=== PATIENT | female | born 1960 | race Two or more races ===

== ENCOUNTER 2019-11-18 06:11 | Day surgery (SDC) | payer OTHER ==
[2019-11-18] VITALS (11 sets, daily range): BP systolic 116–138; BP diastolic 71–87
[~2019-11-18] VITALS: Ht 162.6 cm; Wt 81.6 kg
--- NOTE | 2019-11-18 06:55 | Short Stay Surgery H&P ---
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 Summary of Findings see the reports Attestation Are the patient's medical conditions optimized for surgery? Attestation Response: yes Hernando Appiah MD Nov 18, 2019 06:55
--- NOTE | 2019-11-18 06:56 | Pre-Procedure Note/Attestation ---
Pre-Procedure Note/Attestation Complete Prior to Procedure Planned Procedure: left Procedure Narrative: Examination of the upper and the lower GI tract via endoscopy Indications for Procedure Pre-Operative Diagnosis: Gastritis/Esophagitis/colitis?IBS Attestation I attest that I discussed the nature of the procedure; its benefits; risks and complications; and alternatives (and the risks and benefits of such alternatives ), prior to the procedure, with the patient (or the patient's legal small business sales representative). I attest that, if there was a reasonable possibility of needing a blood transfusion, the patient (or the patient's legal small business sales representative) was given the [facility] standardized written summary, pursuant to the Naren Emily Blood Safety Act ([place] Health and Safety Code # 1645, as amended). I attest that I re-evaluated the patient just prior to the surgery and that there has been no change in the patient's H&P, except as documented below: Hernando Appiah MD Nov 18, 2019 06:56
[2019-11-18] MEDS ORDERED: METFORMIN HCL500 M1 ORAL (07:15)
[2019-11-18] MEDS ORDERED: GLIPIZIDE5 MG ORAL (07:16)
[2019-11-18] MEDS ORDERED: CYMBALTA30 MG ORAL (07:16)
[2019-11-18] MEDS ORDERED: BENICAR HCT 201 EACH ORAL (07:17)
[2019-11-18] MEDS ORDERED: DEPAKOTE ER500 MG ORAL (07:17)
[2019-11-18] MEDS ORDERED: GABAPENTIN100 MG ORAL (07:18)
[2019-11-18] MEDS ORDERED: ULTRACET TABLE1 EACH PO (07:19)
[2019-11-18] MEDS ORDERED: TYLENOL EXTRA500 MG ORAL (07:20)
[2019-11-18] MEDS ORDERED: METOPROLOL SUCC25 MG ORAL (07:23)
[2019-11-18] MEDS ORDERED: fentaNYL 100 mcg/2 mL IV ONE (08:00)
[2019-11-18] MEDS ORDERED: Midazolam 2mg/2ml Inj ONE (08:00)
[2019-11-18] MEDS ORDERED: LR 1000ml ONE (08:00)
[2019-11-18] MEDS ORDERED: LR 1000ml 1,000 ML IVLG SCH (08:11)
--- NOTE | 2019-11-18 08:11 | Anethesia Preoperative Eval ---
Anesthesia Pre-op PMH/ROS General Date of Evaluation: Nov 18, 2019 Time of Evaluation: 07:50 Anesthesiologist: Irina ASA Score: ASA 3 Mallampati Score Class I : Soft palate, uvula, fauces, pillars visible Class II: Soft palate, uvula, fauces visible Class III: Soft palate, base of uvula visible Class IV: Only hard plate visible Mallampati Classification: Class II Surgeon: Deya Diagnosis: Abdominal pain Surgical Procedure: EGD Colonoscopy Anesthesia History: none Family History: no anesthesia problems Allergies: Coded Allergies: LATEX (Verified Allergy, Intermediate, rash, 11/18/19) Medications: see eMAR Patient NPO?: Yes Past Medical History Cardiovascular: Reports: HTN; Denies: CAD, OK, valve dz, arrhythmia, other Pulmonary: Denies: asthma, COPD, CAROLE, other Gastrointestinal/Genitourinary: Reports: GERD Neurologic/Psychiatric: Reports: depression/anxiety, other - chronic pain; Denies: dementia, CVA, TIA Endocrine: Reports: DM - stable on pills; Denies: hypothyroidism, steroids, other HEENT: Denies: cataract (L), cataract (R), glaucoma, CAMPO (L), CAMPO (R), other Hematology/Immune: Denies: anemia, DVT, bleeding disorder, other Musculoskeletal/Integumentary: Reports: OA; Denies: RA, DJD, DDD, edema, other Other: other - overweight PMH Narrative: as above PSxH Narrative: Carpal tunnel Anesthesia Pre-op Phys. Exam Physician Exam Last Vital Signs Date Time Temp Pulse Resp B/P (MAP) Pulse Ox O2 Delivery O2 Flow Rate FiO2 11/18/19 07:51 Room Air 11/18/19 07:30 97.2 69 18 136/87 100 Constitutional: NAD Neurologic: CN 2-12 intact Cardiovascular: RRR, no M/R/G Respiratory: CTA Gastrointestinal: S/NT/ND Airway Exam Mallampati Score: Class II MO: limited Neck: short ROM: limited Teeth: missing Dentures: no upper, no lower Anesthesia Pre-op A/P Labs see chart Risk Assessment & Plan Assessment: ASA 3 Plan: MAC Status Change Before Surgery: No Pre-Antibiotics Drug: none Maicol Arevalo MD Nov 18, 2019 08:11
[2019-11-18] MEDS ORDERED: fentaNYL 100 mcg/2 mL IV PRN (08:15)
--- NOTE | 2019-11-18 08:19 | Endoscopy Procedure Note ---
Endoscopy Procedure Note General Indication for Procedure: Abdominal pains/GERDs Procedures Performed: EGD - Mild gastritis otherwise normal upper GI. endoscopy , biopsies obtained from gastric body and the antrum., colonoscopy - Completely normal total colonoscopy. Specimen: yes Pt Tolerated Procedure Well: Yes Estimated Blood Loss: none Anesthesia Anesthesiologist: Dr. Gibbs Anesthesia: moderate sedation Inserted Devices Implant(s) used?: No Quality Quality of Bowel Preparation: Excellent Did scope reach the cecum?: Yes Was there any complications?: No GI Core Measures 50 yrs or older w/o bx or poly: Yes 10yrs. F/U recommended: Yes If not recommended, why?: Med reason:<3 yrs.: System Reason:<3 yrs.: Hernando Appiah MD Nov 18, 2019 08:19
--- NOTE | 2019-11-18 08:20 | Discharge Instructions ---
Discharge Instructions Discharge Instructions Follow up with: Call for office appointment follow up after 2 weeks For Congestive Heart Failure Reminder Report to your physician any weight gain of 5 pounds or more in one week. Hernando Appiah MD Nov 18, 2019 08:20
--- NOTE | 2019-11-18 08:27 | Immediate Post-Op Evaluation ---
Immediate Post-Op Evalulation Immediate Post-Op Evalulation Procedure: EGD Colonoscopy Date of Evaluation: Nov 18, 2019 Time of Evaluation: 08:26 IV Fluids: 400 Blood Products: none Estimated Blood Loss: none Urinary Output: none Blood Pressure Systolic: 124 Blood Pressure Diastolic: 82 Pulse Rate: 62 Respiratory Rate: 18 O2 Sat by Pulse Oximetry: 99 Temperature (Fahrenheit): 98.1 Pain Score (1-10): 1 Nausea: No Vomiting: No Complications none Patient Status: awake, patent, none Hydration Status: adequate Maicol Arevalo MD Nov 18, 2019 08:27
--- NOTE | 2019-11-18 09:45 | Pre-op HX & Phy Repo 2 SIG ---
DATE OF ADMISSION: 11/18/2019 HISTORY OF PRESENT ILLNESS: The patient is a 59-year-old female who is being seen for generalized examination prior to undergoing the procedure of upper and lower GI endoscopic examination that she has been scheduled to receive. The patient basically was evaluated by me some time ago in May 2019 for the problem that she has been from gastrointestinal point of view that she has suffered subsequent to her work injury and that occurred in the past and as such she reported that she did develop these symptoms after being treated with multiple medications including nonsteroidal anti-inflammatory agents. 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 Today, the patient currently is complaining of experiencing pain as in the past, which were located over the upper and lower part of the abdomen along with symptoms of heartburn consistent with GERD. She reports that these pains are intermittently occurring on a daily basis and she does have excessive gas and bloating as well. There is no history of rectal bleeding, vomiting blood, or passing black stools. For the problem of acid reflux, the patient has been taking medications over the counter such as Pepto-Bismol, however, she was never prescribed medication such as PPI or H2 blockers in the past before seeing me, and at that time I prescribed for her to continue taking these medications. The patient also does complain of having difficulty with consumption of milk as well. She denies having any nausea, vomiting, or having difficulty swallowing. PAST MEDICAL HISTORY: Mostly significant for the diabetes mellitus, hypertension, and hyperlipidemia, and possibly vitamin D deficiency. As I mentioned, she has also suffered from carpal tunnel syndrome on the left side for which she has received surgery. PAST SURGICAL HISTORY: Carpal tunnel release of the left hand in 2014. ALLERGIES: The patient reports that she does have allergy to latex. FAMILY HISTORY: Mother did have a history of stroke, hyperlipidemia, and kidney condition that has been running in the family. HABITS: She drinks very rarely and does not smoke cigarettes. PHYSICAL EXAMINATION: GENERAL: At this time reveals alert, well-oriented female, who does not seem to be in any acute distress. She looks well developed and nourished and overweight/obese. VITAL SIGNS: They are all stable. The patient is afebrile. HEENT: Normocephalic. Pupils are equal in size and reactive to light and accommodation. No visible jaundice. Buccal cavity, tongue midline, well hydrated. No ulcers. NECK: Supple. No JVD, thyromegaly, or adenopathy. CHEST: Clear to auscultation and percussion. No rales or rhonchi. HEART: S1, S2 normal. Regular rhythm. No gallops or murmur. ABDOMEN: Soft, but it is tender all over the abdomen particularly over the epigastric area. There is no palpable mass. No organomegaly noted. Bowel sounds are normal. BACK AND EXTREMITIES: Revealed evidence of some tenderness basically over the neck and shoulder area. NEUROLOGIC: Nonsignificant. INITIAL PREOPERATIVE DIAGNOSES: 1. Abdominal pain of uncertain etiology, rule out NSAID-induced gastritis, rule out peptic ulcer disease, duodenal ulcer, esophagitis. 2. Generalized abdominal pain of uncertain etiology, rule out possible irritable bowel syndrome versus colitis as the patient does have history of chronic diarrhea and constipation, possibly consistent with IBS-M (mixed). 3. Diabetes mellitus. 4. Hypertension. 5. Hyperlipidemia. 6. Obesity. RECOMMENDATIONS: The applicant seems to be stable at this time to undergo the procedure of upper and lower GI endoscopy for which she has been scheduled. She understands the risks and benefits and will sign the consent. Said Uzair Appiah DR: ADDISON JOB#: [id number] CC:
--- NOTE | 2019-11-18 09:45 | Operative Note - Dictated ---
DATE OF OPERATION: 11/18/2019 SURGEON: Hernando Appiah MD PROCEDURE: Esophagogastroduodenoscopy with biopsy. PREOPERATIVE DIAGNOSIS: Abdominal pain, history of chronic gastroesophageal reflux, rule out NSAID-induced gastropathy, peptic ulcer disease, esophagitis. POSTOPERATIVE DIAGNOSIS: Mild generalized gastritis. INSTRUMENT USED: GIF Olympus upper GI video endoscope. MEDICATIONS: Per anesthesiologist, Dr. Arevalo. DESCRIPTION OF PROCEDURE: The patient after arriving in the endoscopy unit, was told about risks and benefits of the procedure, which she accepted and signed informed consent. At this time, she was put on the left lateral decubitus position. After adequate IV sedation, the scope was gently passed through the cricopharyngeal area, was lodged into the upper esophagus and gradually advanced towards gastroesophageal junction. The entire length of esophagus looked completely normal without any evidence of any pathology such as stricture, inflammatory process, esophagitis, varices, ulcers, etc. GE junction also looked completely normal and there was no any evidence of hiatal hernia or strictures, etc. Subsequently, the scope was advanced into the stomach, gastric cavity was distended and gradually the scope was advanced from the GE junction all the way to the antral area. There was evidence of very mild inflammatory process mostly over the posterior wall of the gastric body and greater curvature and some over the pre-pyloric area on the antrum section. A retroflexion maneuver was also applied in the area of the gastroesophageal junction was examined in a closer fashion, which did not reveal any other abnormalities. At this point, one biopsy from gastric body and the other one from the antrum were obtained and sent to the pathology lab. The scope was then passed through the normal-looking pylorus and first and second portion of duodenum were examined that looked completely normal. At this time, the scope was pulled out and the procedure was terminated. The patient tolerated the procedure well. Hernando Appiah M.D. DR: ADDISON JOB#: [id number] CC:
--- NOTE | 2019-11-18 09:54 | 48 Hour Post Anesthesia Eval ---
Post Anesthesia Evaluation Procedure: EGD Colonoscopy Date of Evaluation: Nov 18, 2019 Time of Evaluation: 09:53 Blood Pressure Systolic: 126 0: 74 Pulse Rate: 68 Respiratory Rate: 20 Temperature (Fahrenheit): 97.6 O2 Sat by Pulse Oximetry: 98 Airway: patent Nausea: No Vomiting: No Pain Intensity: 1 Hydration Status: adequate Cardiopulmonary Status: stable Mental Status/LOC: patient returned to baseline Follow-up Care/Observations: n/a Post-Anesthesia Complications: none Follow-up care needed: ready to discharge Maicol Arevalo MD Nov 18, 2019 09:54
--- NOTE | 2019-11-18 10:00 | Operative Note - Dictated ---
DATE OF OPERATION: 11/18/2019 SURGEON: Hernando Appiah MD PROCEDURE: Total colonoscopy. PREOPERATIVE DIAGNOSIS: Generalized abdominal pain, rule out colitis. POSTOPERATIVE DIAGNOSIS: Completely normal total colonoscopy. MEDICATION USED: Per Dr. Arevalo, anesthesiologist. INSTRUMENT: GIF Olympus video colonoscope. DESCRIPTION OF PROCEDURE: The patient after arriving in the endoscopy unit, was told about risks and benefits of the procedure, which she accepted and signed informed consent. She was then put on the left lateral decubitus position. After adequate IV sedation, the scope was gently passed through the anal area and a retroflexion maneuver was applied here, which revealed evidence of hypertrophied anal papilla, but no major hemorrhoids were noticed. The rest of the rectum looked completely normal. At this time, the scope was passed through the rectosigmoid area introduced into the descending colon, gradually advanced towards the splenic flexure. All these areas were completely normal. The scope was then guided into the transverse colon and pushed towards the hepatic flexure. Entire transverse colon also looked completely normal without any pathology. There was no polyps, tumors, inflammatory process, or stricture, etc. Finally, scope was guided into the ascending colon all the way to the base of the cecum, and all these areas again looked normal without any pathology. The colon cleanup was adequate and there was no any disease in the colon. Finally within six minutes, the scope was gradually pulled out and the same areas of the colon were examined and no pathology was added at this point. The patient tolerated the procedure well and left the endoscopy room in a good condition. Hernando Appiah M.D. DR: ADDISON JOB#: [id number] CC:
== END 2019-11-18 09:40 | disposition home or self-care (01) ==
LOC: GAS 06:11
DX: R10.84 Generalized abdominal pain (principal); I10 Essential (primary) hypertension; E78.5 Hyperlipidemia, unspecified; E11.9 Type 2 diabetes mellitus without complications; M19.90 Unspecified osteoarthritis, unspecified site; K29.70 Gastritis, unspecified, without bleeding; K21.9 Gastro-esophageal reflux disease without esophagitis; Z91.040 Latex allergy status; E66.9 Obesity, unspecified; F32.9 Major depressive disorder, single episode, unspecified; F41.9 Anxiety disorder, unspecified; K31.9 Disease of stomach and duodenum, unspecified
CPT/HCPCS: 43239; 45378; 94003; J2250; J2704; J3010; J7120; U0002; 94150